=== PATIENT | male | born 1980 | race Caucasian/White ===

== ENCOUNTER 2016-06-20 21:58 | Emergency (ER) | payer OTHER ==
[~2016-06-20] VITALS: Ht 170.2 cm; Wt 81.8 kg
[~2016-06-20 21:58] MED LIST: ALBUTEROL SULF8.5 GM IH; ALEVE220 M2 PO; CATAPRES0.1 MG PO; FLEXERIL5 MG PO; FLOMAX0.4 MG PO; INDOCIN25 MG PO; MOBIC7.5 MG PO; NAPROSYN500 MG PO; NOHOMEMEDS; PERCOCET 5/31 TABLET PO; PREDNISONE20 MG PO; TESSALON PERLE100 MG PO; TORADOL10 MG PO; TRAZODONE HCL50 MG PO; ULTRAM50 MG PO; VALIUM5 MG PO; VICODIN 5-3001 EACH PO; ZOFRAN4 MG PO
[2016-06-21] MEDS ORDERED: CILOXAN 0.1 APPLICAT RIGHT EYE (01:33)
[2016-06-21 01:45] VITALS: BP 142/98
== END 2016-06-21 01:46 | disposition home or self-care (01) ==
LOC: EME 21:58 → EXP 21:58
DX: S05.01XA Injury of conjunctiva and corneal abrasion without foreign body, right eye, initial encounter (principal); W20.8XXA Other cause of strike by thrown, projected or falling object, initial encounter; F17.200 Nicotine dependence, unspecified, uncomplicated
CPT/HCPCS: 99281; 99283

== ENCOUNTER 2017-09-15 11:48 | Emergency (ER) | payer OTHER ==
[~2017-09-15] VITALS: Ht 175.3 cm; Wt 79.2 kg
[~2017-09-15 11:48] MED LIST changes: +CILOXAN 0.1 APPLICAT RIGHT EYE
[2017-09-15 13:12] LABS: MONOSPOT (MONONUCLEOSIS SEROL) NEGATIVE (NEGATIVE)
[2017-09-15] MEDS ORDERED: XYLOCAINE VISC100 ML PO (13:47)
[2017-09-15] MEDS ORDERED: SILVADENE20 GM TP (13:47)
[2017-09-15 14:20] VITALS: BP 136/92
== END 2017-09-15 14:21 | disposition home or self-care (01) ==
LOC: EME 11:48
PROVIDERS: Physician Assistant
DX: J02.0 Streptococcal pharyngitis (principal); F17.200 Nicotine dependence, unspecified, uncomplicated; Z88.5 Allergy status to narcotic agent
CPT/HCPCS: 86308; 87651 90; 99281; 99285; J0561; J1100

== ENCOUNTER 2017-10-04 22:26 | Emergency (ER) | payer OTHER ==
[~2017-10-04] VITALS: Ht 175.3 cm; Wt 80.6 kg
[~2017-10-04 22:26] MED LIST changes: +SILVADENE20 GM TP; +XYLOCAINE VISC100 ML PO
[2017-10-05 00:41] VITALS: BP 155/90
== END 2017-10-05 00:41 | disposition home or self-care (01) ==
LOC: EME 22:26
DX: S05.01XA Injury of conjunctiva and corneal abrasion without foreign body, right eye, initial encounter (principal); W22.8XXA Striking against or struck by other objects, initial encounter; Y93.89 Activity, other specified; Z88.5 Allergy status to narcotic agent
CPT/HCPCS: 99281; 99284

== ENCOUNTER 2017-11-10 09:05 | Emergency (ER) | payer OTHER ==
[~2017-11-10] VITALS: Ht 175.3 cm; Wt 78.1 kg
[2017-11-10 10:51] LABS: HEMATOCRIT 38.6 % (38.0-50.0); HEMOGLOBIN 13.6 G/DL (12.5-16.6); MCH 29.6 PG (29.0-34.0); MCHC 35.2 G/DL (30.0-36.0); MCV 84.1 FL (86-99); PLATELET COUNT 298 K/uL (156-360); RBC DIS.WIDTH-CV 12.5 % (11.8-14.6); RBC DIS.WIDTH-SD 37.6 % (39-53); RED BLOOD COUNT 4.59 M/uL (4.00-5.50); WHITE BLOOD COUNT 17.5 K/uL (4.1-10.2)
[2017-11-10 11:02] LABS: CHLORIDE 103 mEq/L (99-109); POTASSIUM 3.8 mEq/L (3.7-5.4); SODIUM 138 mEq/L (136-147)
[2017-11-10 11:04] LABS: GLUCOSE 103 mg/dL (70-99)
[2017-11-10 11:07] LABS: CREATININE 0.9 mg/dL (0.6-1.3); GFR ESTIMATE (CALCULATED) > 59 mL/min/ (58.99-99999)
[2017-11-10 11:08] LABS: UREA NITROGEN (BUN) 14 mg/dL (9-23)
[2017-11-10 11:39] LABS: SOURCE URINE
[2017-11-10 11:44] LABS: APPEARANCE CLEAR ((CLEAR)); BILIRUBIN NEGATIVE; BLOOD NEGATIVE; COLOR YELLOW ((YELLOW)); GLUCOSE (STRIP) NEGATIVE; KETONES NEGATIVE; LEUKOCYTES NEGATIVE; NITRITE NEGATIVE; PROTEIN (STRIP) NEGATIVE; SPECIFIC GRAVITY 1.025 (1.000-1.030); UCUL ADDED? NO
[2017-11-10] MEDS ORDERED: NAPROSYN500 MG PO (13:02)
[2017-11-10] MEDS ORDERED: ATARAX,VISTARIL50 MG PO (13:02)
[2017-11-10] MEDS ORDERED: LEVAQUIN500 MG PO (13:02)
[2017-11-10 13:29] VITALS: BP 115/71
[2017-11-15 13:33] LABS: CHLAMYDIA TRACHOMATIS NEGATIVE; NEISSERIA GONORRHOEAE NEGATIVE
== END 2017-11-10 13:33 | disposition home or self-care (01) ==
LOC: EME 09:05
PROVIDERS: Nurse Practitioner Family
DX: N45.1 Epididymitis (principal); N50.3 Cyst of epididymis; L23.7 Allergic contact dermatitis due to plants, except food; I10 Essential (primary) hypertension; Z87.442 Personal history of urinary calculi; K21.9 Gastro-esophageal reflux disease without esophagitis; F17.200 Nicotine dependence, unspecified, uncomplicated
CPT/HCPCS: 76870; 80048; 81003; 85027; 87491; 87591; 99281; 99284; J0696; Q0177